=== PATIENT | female | born 1965 | race Hispanic/Latino ===

== ENCOUNTER 2016-11-01 10:54 | Emergency (ER) | payer MEDICAID ==
[2016-11-01 10:55] VITALS: BMI 28.3
[2016-11-01 11:07] VITALS: BP 121/72; PULSE 87; RESP 16; TEMP 98.3; O2SAT 99
[2016-11-01] MEDS ORDERED: Amoxicillin-Clav 875-125 mg Tab PO STA (11:19)
[2016-11-01] MEDS ORDERED: DiphenhydrAMINE 12.5 mg/5 ml LIQ UD (5 ml) PO STA (11:19)
--- NOTE | 2016-11-01 11:19 | ED PDOC ---
Arrival/HPI - General Chief Complaint: Eye Problem Time Seen by Provider: 11/01/16 11:13 Historian: Patient - History of Present Illness Narrative History of Present Illness (Text): 11/01/16 11:16 51 year old female, no pmh, nkda, complaining of rt. upper eyelid swelling and pain x 2 days. Pt. stated that she has been touching the rt. upper eyelid, been more painful and swelling, no change in vision, no painful movement of the eye, no headache or night sweat, no palpitation, no dizziness, no other medical or psychological complaints. Past Medical History - Provider Review Nursing Documentation Reviewed: Yes - Infectious Disease Hx of Infectious Diseases: None - Tetanus Immunization Tetanus Immunization: Unknown - Past Medical History Past Medical History: No Previous - Cardiac Hx Cardiac Disorders: No - Pulmonary Hx Respiratory Disorders: No - Neurological Hx Neurological Disorder: No - HEENT Hx HEENT Disorder: No - Renal Hx Renal Disorder: No - Endocrine/Metabolic Hx Endocrine Disorders: No - Hematological/Oncological Hx Blood Disorders: No - Integumentary Hx Dermatological Disorder: No - Musculoskeletal/Rheumatological Hx Musculoskeletal Disorders: No - Gastrointestinal Hx Gastrointestinal Disorders: No - Genitourinary/Gynecological Hx Genitourinary Disorders: No - Psychiatric Hx Psychophysiologic Disorder: Yes Hx Bipolar Disorder: Yes Hx Depression: Yes Hx Emotional Abuse: No Hx Physical Abuse: No Hx Substance Use: No - Past Surgical History Past Surgical History: No Previous - Anesthesia Hx Anesthesia: No Hx Anesthesia Reactions: No Hx Malignant Hyperthermia: No - Suicidal Assessment Feels Threatened In Home Enviroment: No Family/Social History - Physician Review Nursing Documentation Reviewed: Yes Family/Social History: Unknown Family HX Smoking Status: Heavy Smoker > 10 Cigarettes Daily Hx Alcohol Use: No Hx Substance Use: No Allergies/Home Meds Allergies/Adverse Reactions: Allergies No Known Allergies Allergy (Verified 11/01/16 11:03) Home Medications: Home Meds Medication Instructions Recorded Confirmed Benztropine [Cogentin] 0.5 mg PO BID 04/15/13 11/01/16 Divalproex [Depakote DR] 250 mg PO .MORNING 06/25/16 11/01/16 Divalproex [Depakote DR] 500 mg PO .NIGHT 06/25/16 11/01/16 Risperidone [Risperdal] 2 mg PO BID 06/25/16 11/01/16 Review of Systems - Review of Systems Constitutional: absent: Fatigue, Fevers Eyes: Other (rt. upper eyelid swelling). absent: Vision Changes ENT: absent: Hearing Changes Cardiovascular: absent: Chest Pain Gastrointestinal: absent: Abdominal Pain, Nausea, Vomiting Physical Exam Vital Signs Reviewed: Yes Vital Signs Temp Pulse Resp BP Pulse Ox 11/01/16 11:06 98.3 F 87 16 121/72 99 Temperature: Afebrile Blood Pressure: Normal Pulse: Regular Respiratory Rate: Normal Appearance: Positive for: Well-Appearing, Non-Toxic, Comfortable Pain Distress: Mild Mental Status: Positive for: Alert and Oriented X 3 - Systems Exam Head: Present: Atraumatic, Normocephalic Pupils: Present: PERRL, Other (Rt. upper eyelid visible redness and mild swelling noted, no hyphema or subconjunctival hemorrhage, bilateral eyes movement without limitation or pain, no conjunctivitis. ) Extroacular Muscles: Present: EOMI Conjunctiva: Present: Normal Ears: Present: NORMAL TM, Normal Canal. No: Erythema Mouth: Present: Moist Mucous Membranes Neck: Present: Normal Range of Motion Respiratory/Chest: Present: Clear to Auscultation, Good Air Exchange. No: Respiratory Distress, Accessory Muscle Use Cardiovascular: Present: Regular Rate and Rhythm, Normal S1, S2. No: Murmurs Abdomen: Present: Normal Bowel Sounds. No: Tenderness, Distention, Peritoneal Signs Back: Present: Normal Inspection Upper Extremity: Present: Normal Inspection. No: Cyanosis, Edema Lower Extremity: Present: Normal Inspection. No: Edema Neurological: Present: GCS=15, CN II-XII Intact, Speech Normal Skin: Present: Warm, Dry, Normal Color. No: Rashes Psychiatric: Present: Alert, Oriented x 3, Normal Insight, Normal Concentration Medical Decision Making ED Course and Treatment: 11/01/16 11:22 -motrin,augmentin,benadryl -Discharge home with augmentin, zyrtec, cold compress, avoid rubbing or touching the eyelids or eye including make up, follow up with your own pmd and technical services rep within 2 days, return to the ER for any new or worsening signs or symptoms. - PA / [employer] REPRESENTATIVE / Resident Statement MD/DO has reviewed & agrees with the documentation as recorded. Disposition/Present on Arrival - Present on Arrival Any Indicators Present on Arrival: No History of DVT/PE: No History of Uncontrolled Diabetes: No Urinary Catheter: No History of Decub. Ulcer: No History Surgical Site Infection Following: None - Disposition Have Diagnosis and Disposition been Completed?: Yes Diagnosis: Preseptal cellulitis of right upper eyelid Disposition: HOME/ ROUTINE Disposition Time: 11:23 Patient Plan: Discharge Condition: GOOD Additional Instructions: Discharge home with augmentin, zyrtec, cold compress, avoid rubbing or touching the eyelids or eye including make up, follow up with your own pmd and technical services rep within 2 days, return to the ER for any new or worsening signs or symptoms. Prescriptions: Amoxicillin/Clavulanate [Augmentin 875 MG-125 MG] 1 tab PO BID #20 tab Cetirizine HCl [Zyrtec] 10 mg PO DAILY #10 tab.rapdis Ibuprofen [Motrin] 600 mg PO TID PRN #21 tab PRN Reason: Other Referrals: Jeovanny Delatorre MD [Staff Provider] - Follow up with primary [facility] at [facility] [place] [Outside] - Follow up with primary Forms: [employer] (Macedonian), WORK NOTE
== END 2016-11-01 11:37 | disposition home or self-care (01) ==
LOC: ED 10:54
DX: L03.213 Periorbital cellulitis (principal)